=== PATIENT | female | born 1995 ===

== ENCOUNTER 2021-09-25 21:40 | Emergency (ER) | payer SELFPAY ==
[2021-09-25] MEDS ORDERED: IBUPROFEN 800 MG TAB PO ONE (22:33)
[2021-09-25 22:59] LABS: Basophils % (Auto) 0.3 % (0.0-1.8); Eosinophils # (Auto) 0.1 K/mm3 (0.0-0.4); Eosinophils % (Auto) 1.3 % (0.0-4.3); Hematocrit 37.3 % (30.3-42.9); Hemoglobin 11.5 gm/dl (10.1-14.3); Lymphocytes % (Auto) 23.2 % (13.4-35.0); Mean Corpuscular HGB Conc 31 % (30-34); Mean Corpuscular Volume 71 fl (79-97); Monocytes # (Auto) 0.5 K/mm3 (0.0-0.8); Platelet Count 228 K/mm3 (140-440); Red Blood Count 5.28 M/mm3 (3.65-5.03); Red Cell Distribution Width 13.8 % (13.2-15.2)
--- NOTE | 2021-09-25 23:13 | Emergency Department Report ---
ED Female HPI - General Chief complaint: Vaginal Bleeding Stated complaint: 8WEEKS PREG BLEEDING Time Seen by Provider: 09/25/21 22:29 Source: patient, family Mode of arrival: Wheelchair Limitations: Language Barrier - History of Present Illness Initial comments: CC: "I took a pill. Baby did not have a heart beat." HPI: This is a 26 yo female who presents with vaginal bleeding and pelvic pain. Yesterday, patient was evaluated at clinic yesterday. Baby did not have a heartbeat. She is 8 weeks , unknown due date. She was given a pill to initiate the miscarriage. She has mild pelvic pain. She has filled 3 pads with bleeding. Family friend provided Maltese interpretation. Complaint: vaginal bleeding, pelvic pain -: Gradual, This afternoon Severity: mild Severity scale (0 -10): 5 Quality: cramping Consistency: constant Improves with: none Worsens with: none Are you Now?: Yes Associated Symptoms: denies other symptoms - Related Data Allergies Allergy/AdvReac Type Severity Reaction Status Date / Time No Known Allergies Allergy Verified 09/25/21 22:07 ED Review of Systems ROS: Stated complaint: 8WEEKS PREG BLEEDING Other details as noted in HPI Comment: All other systems reviewed and negative Constitutional: denies: chills, fever, malaise Respiratory: denies: cough, shortness of breath Cardiovascular: denies: chest pain Gastrointestinal: abdominal pain. denies: nausea, vomiting Musculoskeletal: denies: back pain Skin: denies: rash, lesions ED Past Medical Hx - Past Medical History Previous Medical History?: No - Surgical History Past Surgical History?: No - Family History Family history: other (noncontributory to this presentation) - Social History Smoking Status: Never Smoker Substance Use Type: None ED Physical Exam - General Limitations: Language Barrier General appearance: alert, in no apparent distress - Head Head exam: Present: atraumatic, normocephalic - Eye Eye exam: Present: normal appearance - ENT ENT exam: Present: mucous membranes moist - Neck Neck exam: Present: normal inspection, full ROM - Respiratory Respiratory exam: Present: normal lung sounds bilaterally. Absent: respiratory distress, wheezes, rales, rhonchi - Cardiovascular Cardiovascular Exam: Present: regular rate, normal rhythm, normal heart sounds. Absent: systolic murmur, diastolic murmur, rubs, gallop - GI/Abdominal GI/Abdominal exam: Present: soft, normal bowel sounds. Absent: distended, tenderness, guarding, rebound - Extremities Exam Extremities exam: Present: normal inspection - Neurological Exam Neurological exam: Present: alert, oriented X3 - Psychiatric Psychiatric exam: Present: normal affect, normal mood - Skin Skin exam: Present: warm, dry, intact, normal color. Absent: rash ED Course Vital Signs 09/25/21 09/25/21 09/25/21 21:53 22:01 22:27 Temperature 99.4 F Pulse Rate 111 H Respiratory 16 Rate Blood Pressure Blood Pressure 165/88 [Right] O2 Sat by Pulse 99 98 97 Oximetry 09/25/21 09/25/21 09/25/21 22:29 22:30 22:45 Temperature 98.1 F Pulse Rate 96 H Respiratory 16 Rate Blood Pressure 153/86 Blood Pressure 153/86 [Right] O2 Sat by Pulse 98 99 98 Oximetry 09/25/21 09/25/21 09/25/21 23:00 23:15 23:31 Temperature Pulse Rate Respiratory Rate Blood Pressure 154/90 169/97 151/88 Blood Pressure [Right] O2 Sat by Pulse 95 99 98 Oximetry 09/25/21 09/25/21 09/26/21 23:35 23:45 00:01 Temperature Pulse Rate Respiratory Rate Blood Pressure 151/88 151/88 150/88 Blood Pressure [Right] O2 Sat by Pulse 98 98 98 Oximetry 09/26/21 09/26/21 09/26/21 00:15 00:31 00:45 Temperature Pulse Rate Respiratory Rate Blood Pressure 150/88 202/115 202/115 Blood Pressure [Right] O2 Sat by Pulse 99 99 99 Oximetry 09/26/21 09/26/21 09/26/21 01:01 01:15 01:31 Temperature Pulse Rate Respiratory Rate Blood Pressure 110/53 110/53 106/48 Blood Pressure [Right] O2 Sat by Pulse 98 98 97 Oximetry 09/26/21 09/26/21 09/26/21 01:45 02:01 02:15 Temperature Pulse Rate Respiratory Rate Blood Pressure 106/48 126/62 126/62 Blood Pressure [Right] O2 Sat by Pulse 99 99 99 Oximetry 09/26/21 09/26/21 09/26/21 02:31 02:45 03:01 Temperature Pulse Rate Respiratory Rate Blood Pressure 99/80 116/59 118/69 Blood Pressure [Right] O2 Sat by Pulse 98 100 100 Oximetry 09/26/21 09/26/21 09/26/21 03:15 03:31 03:45 Temperature Pulse Rate Respiratory Rate Blood Pressure 118/69 132/62 132/62 Blood Pressure [Right] O2 Sat by Pulse 100 98 97 Oximetry 09/26/21 04:01 Temperature Pulse Rate Respiratory Rate Blood Pressure 110/42 Blood Pressure [Right] O2 Sat by Pulse 99 Oximetry - Reevaluation(s) Reevaluation #1: 09/26/21 02:40 I reassessed patient. After ultrasound, she had large passage of tissue and blood clots. She stated that "all of it came out." She has moderate pain. Ordered normal saline and repeat H&H. Patient had pallor. Minimal bleeding at this time. ED Medical Decision Making - Lab Data Result diagrams: 09/26/21 03:03 Laboratory Results - last 24 hr 09/25/21 09/25/21 09/25/21 22:23 22:23 22:23 WBC 8.6 RBC 5.28 H Hgb 11.5 Hct 37.3 MCV 71 L MCH 22 L MCHC 31 RDW 13.8 Plt Count 228 Lymph % (Auto) 23.2 Eagle % (Auto) 6.0 Eos % (Auto) 1.3 Baso % (Auto) 0.3 Lymph # (Auto) 2.0 [place] # (Auto) 0.5 Eos # (Auto) 0.1 Baso # (Auto) 0.0 Seg Neutrophils % 69.2 Seg Neutrophils # 5.9 HCG, Quant 1555 H Blood Type O POSITIVE - Radiology Data Radiology results: report reviewed 09/26/21 03:14 Patient Name: ELIZABETH LAY Gender: Female Date of : 1995 Home Phone: Referring Provider: RYLEY SALGADO Organization: [facility] Accession Number: [id number] Requested Date: September 25, 2021 22:33 Report Status: Final Requested Procedure: 1 Procedure Description: US OB transvaginal Modality: US Findings Reporting MD: Hadley Miller Dictation Time: September 25, 2021 23:57 Architectural Coating Finisher: Not available Demand Planner Date: ULTRASOUND OBSTETRIC INDICATION / CLINICAL INFORMATION: pelvic pain vaginal bleeding miscarriage. Clinical Gestational Age (GA) in weeks, days: 11, 3 TECHNIQUE: Transabdominal and Transvaginal. COMPARISON: None. FINDINGS: GESTATIONAL SAC: Single low-lying intrauterine gestational sac measuring up to 3.4 cm greatest dimension. YOLK SAC: Not clearly identified. EMBRYO/FETUS: Single pole is identified. - [place]-Rump Length = not measured cm = weeks, days -Gestational sac size 3.36 cm x 1.43 cm, 7 weeks 3 days.. - Heart Rate, beats per minute (if present) = 0 ADNEXA: Ovaries are not identified. FREE FLUID: Moderate ADDITIONAL FINDINGS: None. IMPRESSION: 1. Single low lying intrauterine gestational sac with estimated gestational age of 7 weeks 3 days. Single pole, no heart activity. Findings are considered compatible with demise and inevitable . Signer Name: Hadley Miller II, MD Signed: 09/25/2021 11:57 PM Workstation Name: [id number] 09/26/21 03:14 - Medical Decision Making Patient presents with incomplete miscarriage with known demise, confirmed with ultrasound in emergency department. emergency department with passage of tissue products and blood clots. Vaginal bleeding minimal after 5 hours of observation. She received IV ketorolac, ibuprofen, IV fluid therapy. Rh positive. Bleeding had ceased for the past hour. She is normotensive. Hemoglobin 9.1 which is acceptable for discharge.. She is discharged home. Critical care attestation.: If time is entered above; I have spent that time in minutes in the direct care of this critically ill patient, excluding procedure time. ED Disposition Clinical Impression: demise, Incomplete miscarriage Disposition: HOME / SELF CARE / HOMELESS Is pt being admited?: No Does the pt Need Aspirin: No Condition: Stable Instructions: Miscarriage, [id number] Referrals: RANDELL VICTORIA MD [Staff Physician] - 3-5 Days Print Language: HEBREW
--- NOTE | 2021-09-26 01:01 | Ultrasound Report ---
ULTRASOUND OBSTETRIC INDICATION / CLINICAL INFORMATION: pelvic pain vaginal bleeding miscarriage. Clinical Gestational Age (GA) in weeks, days: 11, 3 TECHNIQUE: Transabdominal and Transvaginal. COMPARISON: None. FINDINGS: GESTATIONAL SAC: Single low-lying intrauterine gestational sac measuring up to 3.4 cm greatest dimens ion. YOLK SAC: Not clearly identified. EMBRYO/FETUS: Single pole is identified. - [place]-Rump Length = not measured cm = weeks, days -Gestational sac size 3.36 cm x 1.43 cm, 7 weeks 3 days.. - Heart Rate, beats per minute (if present) = 0 ADNEXA: Ovaries are not identified. FREE FLUID: Moderate ADDITIONAL FINDINGS: None. IMPRESSION: 1. Single low lying intrauterine gestational sac with estimated gestational age of 7 weeks 3 days. Si ngle pole, no heart activity. Findings are considered compatible with demise and inevitab le . Signer Name: Hadley Miller II, MD Signed: 09/26/2021 12:57 AM Workstation Name: [id number]
--- NOTE | 2021-09-26 01:01 | Ultrasound Report ---
ULTRASOUND OBSTETRIC INDICATION / CLINICAL INFORMATION: pelvic pain vaginal bleeding miscarriage. Clinical Gestational Age (GA) in weeks, days: 11, 3 TECHNIQUE: Transabdominal and Transvaginal. COMPARISON: None. FINDINGS: GESTATIONAL SAC: Single low-lying intrauterine gestational sac measuring up to 3.4 cm greatest dimens ion. YOLK SAC: Not clearly identified. EMBRYO/FETUS: Single pole is identified. - [place]-Rump Length = not measured cm = weeks, days -Gestational sac size 3.36 cm x 1.43 cm, 7 weeks 3 days.. - Heart Rate, beats per minute (if present) = 0 ADNEXA: Ovaries are not identified. FREE FLUID: Moderate ADDITIONAL FINDINGS: None. IMPRESSION: 1. Single low lying intrauterine gestational sac with estimated gestational age of 7 weeks 3 days. Si ngle pole, no heart activity. Findings are considered compatible with demise and inevitab le . Signer Name: Hadley Miller II, MD Signed: 09/26/2021 12:57 AM Workstation Name: [id number]
[2021-09-26] MEDS ORDERED: SODIUM CHLORIDE 0.9% 1000 ML 1,000 ML IV ONE (02:38)
[2021-09-26] MEDS ORDERED: KETOROLAC 30 MG/1 ML INJ IV ONE (02:38)
[2021-09-26 03:26] LABS: Hematocrit 28.6 % (30.3-42.9); Hemoglobin 9.1 gm/dl (10.1-14.3)
[2021-09-26 04:41] VITALS: BP 135/72
== END 2021-09-26 04:58 | disposition home or self-care (01) ==
LOC: ED 21:40
DX: O36.4XX1 Maternal care for intrauterine death, fetus 1 (principal); O03.4 Incomplete spontaneous abortion without complication; Z3A.11 11 weeks gestation of pregnancy; Z79.899 Other long term (current) drug therapy
CPT/HCPCS: 36415; 76801; 76817; 84702; 85014; 85018; 85025; 86900; 86901; 96361; 96374; 99284; J1885; J7030; 76802; Q0162

== ENCOUNTER 2021-09-26 22:48 | Emergency (ER) | payer SELFPAY ==
[2021-09-27] MEDS ORDERED: SODIUM CHLORIDE 0.9% 1000 ML 1,000 ML IV ONE (00:59)
[2021-09-27] MEDS ORDERED: MORPHINE 4 MG/1 ML INJ IV ONE (00:59)
[2021-09-27] MEDS ORDERED: ONDANSETRON 4 MG/2 ML INJ IV ONE (00:59)
[2021-09-27 01:29] LABS: Basophils % (Auto) 0.1 % (0.0-1.8); Eosinophils % (Auto) 0.4 % (0.0-4.3); Hematocrit 25.4 % (30.3-42.9); Lymphocytes # (Auto) 1.4 K/mm3 (1.2-5.4); Lymphocytes % (Auto) 13.6 % (13.4-35.0); Mean Corpuscular HGB Conc 32 % (30-34); Mean Corpuscular Volume 71 fl (79-97); Monocytes # (Auto) 0.4 K/mm3 (0.0-0.8); Monocytes % (Auto) 3.8 % (0.0-7.3); Platelet Count 220 K/mm3 (140-440); Red Blood Count 3.59 M/mm3 (3.65-5.03); Red Cell Distribution Width 13.7 % (13.2-15.2)
[2021-09-27 01:46] LABS: Alanine Aminotransferase 18 units/L (7-56); Albumin 3.6 g/dL (3.9-5); Blood Urea Nitrogen 11 mg/dL (7-17); Calcium 8.1 mg/dL (8.4-10.2); Hemolysis Index 21
[2021-09-27 01:47] LABS: BUN/Creatinine Ratio 22
--- NOTE | 2021-09-27 04:04 | Emergency Department Report ---
ED Female HPI - General Stated complaint: MISCARRIAGE - History of Present Illness Initial comments: Patient is a 26-year-old female with a history of morbid obesity and who is A1 is approximately 7 weeks gestation with a recently diagnosed inevitable demise presents to the ED with complaint of worsening suprapubic pain with heavy vaginal bleeding for the last 2 days, worse in the last 8 hours. Patient states that she has been taking ibuprofen as needed for pain with no relief. Patient also states that she is currently taking methotrexate that was previously prescribed by her [employer] physician. Patient denies nausea and vomiting, dizziness, syncope, chest pain or shortness of breath, dysuria, urinary frequency and urgency, low back pain, fever, chills, cough, sore throat or diarrhea. MD Complaint: vaginal bleeding, pelvic pain -: Sudden, days(s) (2) Location: suprapubic, other (vaginal bleeding) Radiation: suprapubic Severity: severe Severity scale (0 -10): 8 Quality: cramping, sharp Consistency: constant Improves with: none Worsens with: movement Are you Now?: Yes (miscarriage in process) Associated Symptoms: denies other symptoms, vaginal bleeding, abdominal pain (Suprapubic). denies: vaginal discharge, nausea/vomiting, fever/chills, headaches, hematuria, rash, shortness of breath, syncope, weakness, other - Related Data Sexually active: Yes : 2 Para: 1 A: 1 Previous Rx's Medication Instructions Recorded Last Taken Type Ondansetron [Zofran Odt] 4 mg PO Q8HR PRN #20 tab.rapdis 09/27/21 Unknown Rx oxyCODONE /ACETAMINOPHEN [Percocet 1 tab PO Q6HR PRN #12 tablet 09/27/21 Unknown Rx 5/325] Allergies Allergy/AdvReac Type Severity Reaction Status Date / Time No Known Allergies Allergy Verified 09/25/21 22:07 ED Review of Systems ROS: Stated complaint: MISCARRIAGE Other details as noted in HPI Constitutional: denies: chills, fever Eyes: denies: eye pain, eye discharge, vision change ENT: denies: ear pain, throat pain Respiratory: denies: cough, shortness of breath, wheezing Cardiovascular: denies: chest pain, palpitations Endocrine: no symptoms reported Gastrointestinal: abdominal pain (Suprapubic pain). denies: nausea, vomiting, diarrhea, constipation, hematemesis, hematochezia Genitourinary: abnormal menses (Heavy vaginal bleeding). denies: urgency, dysuria, frequency, hematuria, discharge, dyspareunia Musculoskeletal: denies: back pain, joint swelling, arthralgia Skin: denies: rash, lesions Neurological: denies: headache, weakness, paresthesias Psychiatric: denies: anxiety, depression Hematological/Lymphatic: denies: easy bleeding, easy bruising ED Past Medical Hx - Social History Smoking Status: Never Smoker Substance Use Type: None - Medications Home Medications: Home Medications Medication Instructions Recorded Confirmed Last Taken Type Ondansetron [Zofran Odt] 4 mg PO Q8HR PRN #20 tab.rapdis 09/27/21 Unknown Rx oxyCODONE /ACETAMINOPHEN [Percocet 1 tab PO Q6HR PRN #12 tablet 09/27/21 Unknown Rx 5/325] ED Physical Exam - General General appearance: alert, in no apparent distress - Head Head exam: Present: atraumatic, normocephalic, normal inspection - Eye Eye exam: Present: normal appearance, PERRL, EOMI Pupils: Present: normal accommodation - ENT ENT exam: Present: normal exam, normal orophraynx, mucous membranes moist, TM's normal bilaterally, normal external ear exam - Neck Neck exam: Present: normal inspection, full ROM. Absent: tenderness - Respiratory Respiratory exam: Present: normal lung sounds bilaterally. Absent: respiratory distress, wheezes, rales, rhonchi, chest wall tenderness, accessory muscle use, decreased breath sounds, prolonged expiratory - Cardiovascular Cardiovascular Exam: Present: normal rhythm, tachycardia, normal heart sounds. Absent: systolic murmur, diastolic murmur, rubs, gallop - GI/Abdominal GI/Abdominal exam: Present: soft, tenderness (Palpable suprapubic tenderness), normal bowel sounds. Absent: guarding, rebound, hyperactive bowel sounds, hypoactive bowel sounds, mass, bruit - Bi-manual exam: Present: other (Pelvic exam deferred at this time) - Extremities Exam Extremities exam: Present: normal inspection, full ROM, normal capillary refill. Absent: tenderness, pedal edema, joint swelling - Back Exam Back exam: Present: normal inspection, full ROM. Absent: tenderness, CVA tenderness (R), CVA tenderness (L), muscle spasm, paraspinal tenderness, vertebral tenderness - Neurological Exam Neurological exam: Present: alert, oriented X3, CN II-XII intact, normal gait, reflexes normal - Psychiatric Psychiatric exam: Present: normal affect, normal mood - Skin Skin exam: Present: warm, dry, intact, normal color. Absent: rash ED Course Vital Signs 09/27/21 01:18 Respiratory 16 Rate ED Medical Decision Making - Lab Data Result diagrams: 09/27/21 01:08 09/27/21 01:08 - Medical Decision Making This is a 26-year-old female with a history of morbid obesity and who is A1 is approximately 7 weeks gestation with a recently diagnosed inevitab le demise presents to the ED with complaint of worsening suprapubic pain with heavy vaginal bleeding for the last 2 days, worse in the last 8 hours. Patient states that she has been taking ibuprofen as needed for pain with no relief. Patient stated that she is also currently taking methotrexate that was prescribed by her [employer] physician. In the ED, patient is alert and oriented x3 and is not in any distress. Patient appears to be in pain and is tachycardic and afebrile in triage. Patient was treated for pain in the ED. Lab test results were reviewed and showed hCG quant of 1094 compared to 1555 about 48 hours ago. Other lab test results were nonactionable. On reevaluation, eloisa jackson's pain is well controlled medication. Patient will discharge home on pain medications and advised to continue taking the previously prescribed medications and to observe complete pelvic rest. Patient was advised to follow-up with [employer] physician in 3 to 5 days for reevaluation or return to the ED immediately if symptoms get worse. - Differential Diagnosis demise; inevitable ; UTI; ovarian cyst; subchorionic bleed Critical care attestation.: If time is entered above; I have spent that time in minutes in the direct care of this critically ill patient, excluding procedure time. ED Disposition Clinical Impression: Vaginal bleeding affecting early , demise due to miscarriage, Abdominal pain during in first trimester, Incomplete miscarriage Disposition: HOME / SELF CARE / HOMELESS Is pt being admited?: No Does the pt Need Aspirin: No Condition: Stable Instructions: Vaginal Bleeding During , First Trimester, Miscarriage, [id number], Abdominal Pain During , [id number], Vaginal Bleeding During , First Trimester, [id number], Vaginal Delivery, Loss, Care After Additional Instructions: Todos los resultados de las pruebas de laboratorio fueron revisados ??y no son procesables. Por lo tanto, tome los medicamentos con alimentos, karoline muchos lquidos, mantenga un descanso plvico completo sin actividades fsicas o extenuantes o actividades sexuales y cheryle un seguimiento con osorio mdico obstetra/gineclogo en 3 a 5 harry para lucero reevaluacin. Regrese al servicio de urgencias inmediatamente si los sntomas empeoran. Prescriptions: oxyCODONE /ACETAMINOPHEN [Percocet 5/325] 1 tab PO Q6HR PRN #12 tablet PRN Reason: Pain Ondansetron [Zofran Odt] 4 mg PO Q8HR PRN #20 tab.rapdis PRN Reason: Nausea Referrals: DERICK WESLEY MD [Staff Physician] - 3-5 Days Time of Disposition: 04:11 Print Language: DANISH
[2021-09-27 04:06] VITALS: BP 155/96
== END 2021-09-27 04:45 | disposition home or self-care (01) ==
LOC: ED 22:48
DX: O03.4 Incomplete spontaneous abortion without complication (principal); O36.4XX1 Maternal care for intrauterine death, fetus 1; Z79.899 Other long term (current) drug therapy; Z3A.01 Less than 8 weeks gestation of pregnancy
CPT/HCPCS: 36415; 80053; 84702; 85025; 96361; 96374; 96375; 99283; J2270; J2405; J7030; Q0162

== ENCOUNTER 2021-10-06 16:10 | Emergency (ER) | payer SELFPAY ==
[2021-10-06] MEDS ORDERED: SODIUM CHLORIDE 0.9% 1000 ML 1,000 ML IV ONE ×2 (16:54)
[2021-10-06 16:55] LABS: Basophils % (Auto) 0.2 % (0.0-1.8); Eosinophils # (Auto) 0.1 K/mm3 (0.0-0.4); Eosinophils % (Auto) 0.6 % (0.0-4.3); Hemoglobin 6.3 gm/dl (10.1-14.3); Lymphocytes # (Auto) 2.2 K/mm3 (1.2-5.4); Lymphocytes % (Auto) 15.1 % (13.4-35.0); Mean Corpuscular HGB Conc 32 % (30-34); Mean Corpuscular Volume 70 fl (79-97); Monocytes # (Auto) 0.6 K/mm3 (0.0-0.8); Monocytes % (Auto) 4.2 % (0.0-7.3); Platelet Count 410 K/mm3 (140-440); Red Blood Count 2.84 M/mm3 (3.65-5.03); Red Cell Distribution Width 14.6 % (13.2-15.2)
[2021-10-06] MEDS ORDERED: ONDANSETRON 4 MG/2 ML INJ IV ONE (16:57)
[2021-10-06] MEDS ORDERED: HYDROmorphone 1 MG/1 ML INJ IV ONE (16:57)
[2021-10-06] MEDS ORDERED: KETOROLAC 30 MG/1 ML INJ IV ONE (16:57)
[2021-10-06 16:58] LABS: Hematocrit 19.9 % (30.3-42.9)
[2021-10-06] MEDS ORDERED: SODIUM CHLORIDE 0.9% 500 ML 500 ML IV ONE (16:59)
--- NOTE | 2021-10-06 17:51 | Emergency Department Report ---
ED HPI - General Chief complaint: Vaginal Bleeding Stated complaint: POSS MISCARRIAGE/HYPOTENSIVE Time Seen by Provider: 10/06/21 16:39 Source: EMS, old records reviewed Mode of arrival: Stretcher Limitations: Language Barrier (director business development used) - History of Present Illness Initial comments: 26-year-old female presents to the hospital with worsening bleeding, generalized weakness, and a syncopal episode during current miscarriage. Patient was diagnosed with demise at outpatient clinic on September 24 and was treated with medicine to pass the baby. Ultrasound here on September 25 confirms 7-week 3-day IUP with heart heartbeat. Patient has had repeated ER visits for heavy vaginal bleeding and abdominal pain as well as following up in clinic with downtrending hCGs. Last follow-up with the clinic was yesterday. Today patient states she had heavy vaginal bleeding, increased suprapubic and lower back cramping pain, and had a syncopal episode so came to the ED for evaluation. She is currently taking Zofran and Percocet as needed - Related Data Previous Rx's Medication Instructions Recorded Last Taken Type Ondansetron [Zofran Odt] 4 mg PO Q8HR PRN #20 tab.rapdis 09/27/21 Unknown Rx oxyCODONE /ACETAMINOPHEN [Percocet 1 tab PO Q6HR PRN #12 tablet 09/27/21 Unknown Rx 5/325] Ferrous Sulfate [Iron 325 MG] 325 mg PO DAILY #20 tab 10/06/21 Unknown Rx Methylergonovine [Methergine] 0.2 mg PO Q8HR #9 tablet 10/06/21 Unknown Rx Allergies Allergy/AdvReac Type Severity Reaction Status Date / Time No Known Allergies Allergy Verified 10/06/21 16:20 ED Review of Systems ROS: Stated complaint: POSS MISCARRIAGE/HYPOTENSIVE Other details as noted in HPI Comment: All other systems reviewed and negative ED Past Medical Hx - Social History Smoking Status: Unknown if ever smoked - Medications Home Medications: Home Medications Medication Instructions Recorded Confirmed Last Taken Type Ondansetron [Zofran Odt] 4 mg PO Q8HR PRN #20 tab.rapdis 09/27/21 Unknown Rx oxyCODONE /ACETAMINOPHEN [Percocet 1 tab PO Q6HR PRN #12 tablet 09/27/21 Unkno wn Rx 5/325] Ferrous Sulfate [Iron 325 MG] 325 mg PO DAILY #20 tab 10/06/21 Unknown Rx Methylergonovine [Methergine] 0.2 mg PO Q8HR #9 tablet 10/06/21 Unknown Rx ED Physical Exam - General Limitations: No Limitations - Other Other exam information: General: No acute distress Head: Atraumatic Eyes: normal appearance ENT: Moist mucous membranes Neck: Normal appearance, no midline tenderness Chest: Clear to auscultation bilaterally CV: Regular rate and rhythm Abdomen: Soft, normal bowel sounds, suprapubic tenderness, nondistended, no rebound or guarding : Vaginal bleeding with passage of blood clots Back: Normal inspection Extremity: Normal inspection, full range of motion Neuro: Alert O x 3, no facial asymmetry, speech clear, no gross motor sensory deficit Psych: Appropriate behavior Skin: Pale appearing ED Course Vital Signs 10/06/21 10/06/21 10/06/21 16:19 16:41 16:45 Temperature 98 F Pulse Rate 106 H Respiratory 18 Rate Blood Pressure 127/84 111/67 Blood Pressure 111/91 [Left] O2 Sat by Pulse 100 Oximetry 10/06/21 10/06/21 10/06/21 17:06 17:15 17:30 Temperature Pulse Rate 90 Respiratory 19 Rate Blood Pressure 114/38 100/62 117/48 Blood Pressure [Left] O2 Sat by Pulse 99 Oximetry 10/06/21 10/06/21 10/06/21 17:40 17:51 18:00 Temperature Pulse Rate 92 H 92 H 90 Respiratory 15 36 H 36 H Rate Blood Pressure 120/47 119/52 122/43 Blood Pressure [Left] O2 Sat by Pulse 100 100 100 Oximetry 10/06/21 10/06/21 10/06/21 18:10 18:20 18:30 Temperature 98.3 F Pulse Rate 93 H 88 91 H Respiratory 34 H 29 H 23 Rate Blood Pressure 111/62 140/56 109/40 Blood Pressure [Left] O2 Sat by Pulse 100 100 100 Oximetry 10/06/21 10/06/21 10/06/21 18:39 18:40 18:41 Temperature 98.3 F Pulse Rate 90 86 85 Respiratory 24 23 17 Rate Blood Pressure 110/51 110/51 110/51 Blood Pressure [Left] O2 Sat by Pulse 99 100 100 Oximetry 10/06/21 10/06/21 10/06/21 18:43 18:44 18:45 Temperature 98.3 F Pulse Rate 97 H 84 84 Respiratory 21 22 28 H Rate Blood Pressure 110/51 114/41 114/41 Blood Pressure 120/43 [Left] O2 Sat by Pulse 100 100 100 Oximetry 10/06/21 10/06/21 10/06/21 18:47 18:49 18:50 Temperature Pulse Rate 79 84 81 Respiratory 27 H 28 H 26 H Rate Blood Pressure 114/41 114/41 120/43 Blood Pressure [Left] O2 Sat by Pulse 100 100 100 Oximetry 10/06/21 10/06/21 10/06/21 18:51 18:53 18:55 Temperature Pulse Rate 83 82 85 Respiratory 18 23 19 Rate Blood Pressure 120/43 120/43 120/39 Blood Pressure [Left] O2 Sat by Pulse 100 100 100 Oximetry 10/06/21 10/06/21 10/06/21 18:57 18:59 19:01 Temperature Pulse Rate 83 81 83 Respiratory 24 26 H 24 Rate Blood Pressure 120/39 120/39 120/39 Blood Pressure [Left] O2 Sat by Pulse 100 100 100 Oximetry 10/06/21 10/06/21 10/06/21 19:03 19:05 19:07 Temperature Pulse Rate 85 79 91 H Respiratory 28 H 22 13 Rate Blood Pressure 120/39 120/39 120/39 Blood Pressure [Left] O2 Sat by Pulse 100 100 100 Oximetry 10/06/21 10/06/21 10/06/21 19:09 19:10 19:11 Temperature Pulse Rate 87 88 89 Respiratory 17 20 13 Rate Blood Pressure 120/39 117/36 117/36 Blood Pressure [Left] O2 Sat by Pulse 99 100 100 Oximetry 10/06/21 10/06/21 10/06/21 19:13 19:15 19:25 Temperature Pulse Rate 90 85 84 Respiratory 21 12 28 H Rate Blood Pressure 117/36 117/36 110/42 Blood Pressure [Left] O2 Sat by Pulse 98 98 100 Oximetry 10/06/21 10/06/21 10/06/21 19:27 19:29 19:31 Temperature Pulse Rate 86 86 85 Respiratory 26 H 25 H 24 Rate Blood Pressure 110/42 110/42 110/42 Blood Pressure [Left] O2 Sat by Pulse 100 100 100 Oximetry 10/06/21 10/06/21 10/06/21 19:33 19:35 19:37 Temperature Pulse Rate 83 91 H 89 Respiratory 25 H 25 H 13 Rate Blood Pressure 110/42 110/42 110/42 Blood Pressure [Left] O2 Sat by Pulse 100 100 100 Oximetry 10/06/21 10/06/21 10/06/21 19:39 19:40 19:41 Temperature Pulse Rate 86 86 88 Respiratory 20 28 H 27 H Rate Blood Pressure 113/42 113/42 113/42 Blood Pressure [Left] O2 Sat by Pulse 100 100 100 Oximetry 10/06/21 10/06/21 10/06/21 19:43 19:45 19:47 Temperature Pulse Rate 94 H 95 H 94 H Respiratory 24 21 19 Rate Blood Pressure 113/42 113/42 113/42 Blood Pressure [Left] O2 Sat by Pulse 100 100 100 Oximetry 10/06/21 10/06/21 10/06/21 19:49 19:51 19:53 Temperature Pulse Rate 94 H 89 96 H Respiratory 18 18 34 H Rate Blood Pressure 113/42 113/42 113/42 Blood Pressure [Left] O2 Sat by Pulse 100 100 100 Oximetry 10/06/21 10/06/21 10/06/21 19:55 19:57 19:59 Temperature Pulse Rate 93 H 103 H 94 H Respiratory 26 H 23 12 Rate Blood Pressure 132/59 132/59 132/59 Blood Pressure [Left] O2 Sat by Pulse 100 100 100 Oximetry 10/06/21 10/06/21 10/06/21 20:01 20:03 20:05 Temperature Pulse Rate 89 92 H 91 H Respiratory 12 14 11 L Rate Blood Pressure 132/59 132/59 132/59 Blood Pressure [Left] O2 Sat by Pulse 100 100 100 Oximetry 10/06/21 10/06/21 10/06/21 20:07 20:09 20:10 Temperature Pulse Rate 92 H 93 H 95 H Respiratory 18 19 20 Rate Blood Pressure 132/59 132/59 103/58 Blood Pressure [Left] O2 Sat by Pulse 100 100 100 Oximetry 10/06/21 10/06/21 10/06/21 20:11 20:13 20:15 Temperature Pulse Rate 91 H 93 H 94 H Respiratory 13 13 16 Rate Blood Pressure 103/58 103/58 103/58 Blood Pressure [Left] O2 Sat by Pulse 100 100 100 Oximetry 10/06/21 10/06/21 10/06/21 20:17 20:19 20:21 Temperature Pulse Rate 91 H 90 97 H Respiratory 17 25 H 30 H Rate Blood Pressure 103/58 103/58 103/58 Blood Pressure [Left] O2 Sat by Pulse 100 100 100 Oximetry 10/06/21 10/06/21 10/06/21 20:23 20:25 20:27 Temperature Pulse Rate 92 H 95 H 90 Respiratory 29 H 16 19 Rate Blood Pressure 103/58 103/52 103/52 Blood Pressure [Left] O2 Sat by Pulse 100 100 100 Oximetry 10/06/21 10/06/21 10/06/21 20:29 20:31 20:33 Temperature Pulse Rate 91 H 103 H 94 H Respiratory 17 22 16 Rate Blood Pressure 103/52 103/52 103/52 Blood Pressure [Left] O2 Sat by Pulse 100 100 100 Oximetry 10/06/21 10/06/21 10/06/21 20:35 20:37 20:39 Temperature Pulse Rate 89 92 H 95 H Respiratory 22 14 18 Rate Blood Pressure 103/52 103/52 103/52 Blood Pressure [Left] O2 Sat by Pulse 100 100 100 Oximetry 10/06/21 10/06/21 10/06/21 20:41 20:43 20:45 Temperature Pulse Rate 94 H 87 92 H Respiratory 21 19 20 Rate Blood Pressure 129/53 129/53 129/53 Blood Pressure [Left] O2 Sat by Pulse 99 100 100 Oximetry 10/06/21 10/06/21 10/06/21 20:47 20:49 20:51 Temperature Pulse Rate 97 H 97 H 101 H Respiratory 22 14 16 Rate Blood Pressure 129/53 129/53 129/53 Blood Pressure [Left] O2 Sat by Pulse 92 97 100 Oximetry 10/06/21 10/06/21 10/06/21 20:53 20:55 20:57 Temperature Pulse Rate 98 H 95 H 91 H Respiratory 13 20 20 Rate Blood Pressure 129/53 145/58 145/58 Blood Pressure [Left] O2 Sat by Pulse 100 100 100 Oximetry 10/06/21 20:59 Temperature Pulse Rate 94 H Respiratory 23 Rate Blood Pressure 145/58 Blood Pressure [Left] O2 Sat by Pulse 100 Oximetry - Consultations Consultation #1: 10/06/21 19:57 Case discussed with on-call [employer] doctor Dr. Chavez who recommends to provide Methergine 0.2 mg IM in the ED then sent home with 0.2 mg p.o. 3 times daily x3 days in addition to blood transfusion prior to discharge ED Medical Decision Making - Lab Data Result diagrams: 10/06/21 16:41 Lab Results 10/06/21 10/06/21 10/06/21 Range/Units 16:41 16:41 16:41 WBC 14.3 H (4.5-11.0) K/mm3 RBC 2.84 L (3.65-5.03) M/mm3 Hgb 6.3 L (10.1-14.3) gm/dl Hct 19.9 L* (30.3-42.9) % MCV 70 L (79-97) fl MCH 22 L (28-32) pg MCHC 32 (30-34) % RDW 14.6 (13.2-15.2) % Plt Count 410 (140-440) K/mm3 Lymph % (Auto) 15.1 (13.4-35.0) % Hunt % (Auto) 4.2 (0.0-7.3) % Eos % (Auto) 0.6 (0.0-4.3) % Baso % (Auto) 0.2 (0.0-1.8) % Lymph # (Auto) 2.2 (1.2-5.4) K/mm3 Hunt # (Auto) 0.6 (0.0-0.8) K/mm3 Eos # (Auto) 0.1 (0.0-0.4) K/mm3 Baso # (Auto) 0.0 (0.0-0.1) K/mm3 Seg Neutrophils % 79.9 H (40.0-70.0) % Seg Neutrophils # 11.5 H (1.8-7.7) K/mm3 HCG, Quant 176.2 H (0-4) mIU/mL Blood Type O POSITIVE Antibody Screen Negative Crossmatch See Detail - EKG Data -: EKG Interpreted by Nd EKG shows normal: sinus rhythm, ST-T waves (No STEMI) Rate: normal - Radiology Data Radiology results: report reviewed ULTRASOUND OBSTETRIC INDICATION / CLINICAL INFORMATION: miscariage, heavy vag bleeding. Clinical Gestational Age (GA): 12 weeks 6 days TECHNIQUE: Transabdominal. Transvaginal COMPARISON: Prior ultrasound 09/26/2021 FINDINGS: UTERUS: Uterus measures 12.0 x 4.6 x 4.7 cm. The endometrium is markedly thickened measuring approximately 4.0 cm in greatest diameter. This is especially noted within the lower uterine segment. Color Doppler evaluation shows no vascularity present within the thickened endometrial area. No defined gestational sac is present within the uterus. ADNEXA: Neither ovary could be identified. FREE FLUID: None. ADDITIONAL FINDINGS: None. IMPRESSION: 1. Markedly thickened endometrium measuring 4 cm. The appearance is most sugge stive of hemorrhage. There is no vascularity present within the thickened endometrium to suggest re tained products of conception. However, clinical correlation is recommended. - Medical Decision Making 26-year-old female status post syncopal episode associate with heavy vaginal bleeding secondary to miscarriage. Drop in H&H noted. Patient treated with 1 unit of PRBCs and Methergine as per recommendation of Dr. Chavez [employer] physician. After ED treatment patient tolerated ambulation in the ED, has normal vital signs, and reports diminished bleeding and pain. She will be discharged to continue current pain medication and Methergine as per recommended by OB Critical Care Time: No Critical care attestation.: If time is entered above; I have spent that time in minutes in the direct care of this critically ill patient, excluding procedure time. ED Disposition Clinical Impression: Miscarriage, Episode of heavy vaginal bleeding, Symptomatic anemia, Syncope Disposition: 01 HOME / SELF CARE / HOMELESS Is pt being admited?: No Does the pt Need Aspirin: No Condition: Stable Instructions: Syncope (ED), Miscarriage, Syncope, [id number], Blood Transfusion, Adult, Care After, [id number] Additional Instructions: Take the medication as prescribed. Follow-up with your doctor or doctor/clinic provided. Return if symptoms worsen as indicated by your discharge instructions. [place] el medicamento segn lo prescrito. Seguimiento con osorio mdico o mdico/clnica proporcionada. Regrese si los sntomas empeoran segn lo indicado en las instrucciones de blue. Prescriptions: Ferrous Sulfate [Iron 325 MG] 325 mg PO DAILY #20 tab Methylergonovine [Methergine] 0.2 mg PO Q8HR #9 tablet Referrals: PRIMARY CAREMD [Primary Care Provider] - 3-5 Days MARIBEL CHAVEZ MD [Staff Physician] - 3-5 Days Time of Disposition: 22:12 Print Language: LAO
--- NOTE | 2021-10-06 18:48 | Ultrasound Report ---
ULTRASOUND OBSTETRIC INDICATION / CLINICAL INFORMATION: miscariage, heavy vag bleeding. Clinical Gestational Age (GA): 12 weeks 6 days TECHNIQUE: Transabdominal. Transvaginal COMPARISON: Prior ultrasound 09/26/2021 FINDINGS: UTERUS: Uterus measures 12.0 x 4.6 x 4.7 cm. The endometrium is markedly thickened measuring approxim ately 4.0 cm in greatest diameter. This is especially noted within the lower uterine segment. Color D oppler evaluation shows no vascularity present within the thickened endometrial area. No defined gest ational sac is present within the uterus. ADNEXA: Neither ovary could be identified. FREE FLUID: None. ADDITIONAL FINDINGS: None. IMPRESSION: 1. Markedly thickened endometrium measuring 4 cm. The appearance is most suggestive of hemorrhage. Th ere is no vascularity present within the thickened endometrium to suggest retained products of concep tion. However, clinical correlation is recommended. Signer Name: Aspen Katz MD Signed: 10/06/2021 6:44 PM Workstation Name: [id number]
[2021-10-06] MEDS ORDERED: METHYLERGONOVINE MALEATE 0.2 MG/ML VIAL IM ONE (19:56)
[2021-10-06 21:01] VITALS: BP 145/58
--- NOTE | 2021-10-09 10:08 | Electrocardiograph Report ---
[facility] Test Date: 2021-10-06 Test Time: 17:48:25 Pat Name: ELIZABETH LAY Department: Room: Gender: F Sand Blaster: JUAN : 1995 Requested By: CARINE MYLES Order Number: [id number] Reading MD: Oliver Escobedo Measurements Intervals [place] Rate: 91 P: 6 CT: 164 QRS: 54 QRSD: 88 T: 28 QT: 380 QTc: 466 Interpretive Statements Sinus rhythm [id number] No previous ECG available for comparison Electronically Signed On 10-09-2021 10:08:14 EDT by Oliver Escobedo
== END 2021-10-06 22:49 | disposition home or self-care (01) ==
LOC: ED 16:10
DX: O03.9 Complete or unspecified spontaneous abortion without complication (principal); O46.91 Antepartum hemorrhage, unspecified, first trimester; O26.891 Other specified pregnancy related conditions, first trimester; O99.011 Anemia complicating pregnancy, first trimester; R42 Dizziness and giddiness; Z3A.01 Less than 8 weeks gestation of pregnancy
CPT/HCPCS: 36415; 36430; 76801; 76817; 84702; 85025; 86850; 86900; 86901; 86920; 93005; 96361; 96372; 96374; 96375; 99284; J1170; J1885; J2210; J2405; J7040; P9016

== ENCOUNTER 2021-10-15 14:04 | Observation (INO) | payer SELFPAY ==
[2021-10-15] MEDS ORDERED: SODIUM CHLORIDE 0.9% 1000 ML 1,000 ML IV ONE ×2 (15:03→16:46)
[2021-10-15 16:22] LABS: Hemoglobin 6.6 gm/dl (10.1-14.3); Red Blood Count 3.19 M/mm3 (3.65-5.03)
[2021-10-15 16:23] LABS: Basophils % (Auto) 0.3 % (0.0-1.8); Eosinophils # (Auto) 0.1 K/mm3 (0.0-0.4); Eosinophils % (Auto) 0.7 % (0.0-4.3); Hematocrit 22.2 % (30.3-42.9); Lymphocytes # (Auto) 1.2 K/mm3 (1.2-5.4); Lymphocytes % (Auto) 13.5 % (13.4-35.0); Mean Corpuscular HGB Conc 30 % (30-34); Mean Corpuscular Volume 70 fl (79-97); Monocytes # (Auto) 0.4 K/mm3 (0.0-0.8); Monocytes % (Auto) 4.5 % (0.0-7.3); Platelet Count 334 K/mm3 (140-440); Red Cell Distribution Width 18.4 % (13.2-15.2)
[2021-10-15 16:42] LABS: Alanine Aminotransferase 16 units/L (7-56); Albumin 4.1 g/dL (3.9-5); Blood Urea Nitrogen 13 mg/dL (7-17); Calcium 9.2 mg/dL (8.4-10.2); Hemolysis Index 0
[2021-10-15 16:43] LABS: BUN/Creatinine Ratio 22
--- NOTE | 2021-10-15 17:22 | Emergency Department Report ---
ED Female HPI - General Chief complaint: Vaginal Bleeding Stated complaint: VAG BLEEDING/ POSS 12PREG Source: patient Mode of arrival: Ambulatory Limitations: No Limitations - History of Present Illness Initial comments: Patient is a A0 26-year-old female who is approximately 12 weeks gestation 2 weeks ago and has been having heavy vaginal bleeding due to miscar riage for the last 2 weeks. Patient has previously been evaluated in this ED for the same and previous pelvic and transvaginal ultrasound reports have showed no intrauterine or products of conception. Patient presented to the ED complaining of persistent pelvic pain, lightheadedness, and heavy vaginal bleeding with large blood clots, generalized weakness and fatigue for the last 24 hours. Patient states that in the last 8 hours alone she has used up to 4 large feminine pads and that the bleeding is constant and persistent with large bowel blood clots. Patient denies fever, chills, chest pain or shortness of breath, cough, change in vision, nausea and vomiting or diarrhea and dysuria. MD Complaint: vaginal bleeding, pelvic pain -: Sudden, week(s) (2) Location: suprapubic, other (vaginal) Radiation: non-radiating Severity: severe Severity scale (0 -10): 7 Quality: cramping, sharp Consistency: constant Improves with: none Worsens with: none Are you Now?: Yes ([facility]) - Related Data Previous Rx's Medication Instructions Recorded Last Taken Type Ondansetron [Zofran Odt] 4 mg PO Q8HR PRN #20 tab.rapdis 09/27/21 Unknown Rx oxyCODONE /ACETAMINOPHEN [Percocet 1 tab PO Q6HR PRN #12 tablet 09/27/21 Unknown Rx 5/325] Ferrous Sulfate [Iron 325 MG] 325 mg PO DAILY #20 tab 10/06/21 Unknown Rx Methylergonovine [Methergine] 0.2 mg PO Q8HR #9 tablet 10/06/21 Unknown Rx Allergies Allergy/AdvReac Type Severity Reaction Status Date / Time No Known Allergies Allergy Verified 10/06/21 16:20 ED Review of Systems ROS: Stated complaint: VAG BLEEDING/ POSS 12PREG Other details as noted in HPI Constitutional: malaise, weakness. denies: chills, fever Eyes: denies: eye pain, eye discharge, vision change ENT: denies: ear pain, throat pain Respiratory: denies: cough, shortness of breath, wheezing Cardiovascular: denies: chest pain, palpitations Endocrine: no symptoms reported Gastrointestinal: abdominal pain (Pelvic pain). denies: nausea, vomiting, diarrhea Genitourinary: abnormal menses (Heavy vaginal bleeding with large blood clots). denies: urgency, dysuria, discharge Musculoskeletal: denies: back pain, joint swelling, arthralgia Skin: denies: rash, lesions Neurological: other (Lightheadedness). denies: headache, weakness, paresthesias Psychiatric: denies: anxiety, depression Hematological/Lymphatic: denies: easy bleeding, easy bruising ED Past Medical Hx - Social History Smoking Status: Unknown if ever smoked - Medications Home Medications: Home Medications Medication Instructions Recorded Confirmed Last Taken Type Ondansetron [Zofran Odt] 4 mg PO Q8HR PRN #20 tab.rapdis 09/27/21 Unknown Rx oxyCODONE /ACETAMINOPHEN [Percocet 1 tab PO Q6HR PRN #12 tablet 09/27/21 Unknown Rx 5/325] Ferrous Sulfate [Iron 325 MG] 325 mg PO DAILY #20 tab 10/06/21 Unknown Rx Methylergonovine [Methergine] 0.2 mg PO Q8HR #9 tablet 10/06/21 Unknown Rx ED Physical Exam - General Limitations: No Limitations General appearance: alert, in no apparent distress - Head Head exam: Present: atraumatic, normocephalic, normal inspection - Eye Eye exam: Present: normal appearance, PERRL, EOMI Pupils: Present: normal accommodation - ENT ENT exam: Present: normal exam, normal orophraynx, mucous membranes moist, TM's normal bilaterally, normal external ear exam - Neck Neck exam: Present: normal inspection, full ROM. Absent: tenderness - Respiratory Respiratory exam: Present: normal lung sounds bilaterally. Absent: respiratory distress, wheezes, rales, rhonchi, chest wall tenderness, accessory muscle use, decreased breath sounds, other - Cardiovascular Cardiovascular Exam: Present: normal rhythm, tachycardia, normal heart sounds. Absent: systolic murmur, diastolic murmur, rubs, gallop - GI/Abdominal GI/Abdominal exam: Present: soft, tenderness (Palpable diffuse lower abdominal tenderness), normal bowel sounds. Absent: guarding, rebound, hyperactive bowel sounds, hypoactive bowel sounds, organomegaly, mass - External exam: Present: bleeding (Heavy vaginal bleeding grossly with large blood clots; vaginal vault completely closed with a thick large blood clots) Speculum exam: Present: vaginal bleeding Bi-manual exam: Present: other (ED female RN client relationship consultant Ms. Pabon present) - Extremities Exam Extremities exam: Present: normal inspection, full ROM, normal capillary refill - Back Exam Back exam: Present: normal inspection, full ROM. Absent: tenderness, CVA tenderness (R), CVA tenderness (L), muscle spasm, paraspinal tenderness, vertebral tenderness - Neurological Exam Neurological exam: Present: alert, oriented X3, CN II-XII intact, normal gait, reflexes normal - Psychiatric Psychiatric exam: Present: normal affect, normal mood - Skin Skin exam: Present: warm, dry, intact, normal color. Absent: rash ED Course Vital Signs 10/15/21 14:54 Temperature 97.2 F L Pulse Rate 130 H Respiratory 18 Rate Blood Pressure 157/85 [Right] O2 Sat by Pulse 100 Oximetry ED Medical Decision Making - Lab Data Result diagrams: 10/15/21 15:34 10/15/21 15:34 - Radiology Data Radiology results: report reviewed, image reviewed [facility] [address] [place] [address] Ultrasound Report Signed Patient: ELIZABETH LAY MR#: [id number] : 1995 Acct:[id number] Age/Sex: 26 / F ADM Date: 10/15/21 Loc: ED Attending Dr: Ordering Physician: SIMEON BOND Date of Service: 10/15/21 Procedure(s): US transvaginal Accession Number(s): [id number] cc: SIMEON BOND Pelvic Ultrasound HISTORY: vaginal bleeding. Patient reportedly with recent miscarriage TECHNIQUE: Grayscale and color imaging performed. COMPARISON: Pelvic ultrasound from 10/07/2019 to FINDINGS: Uterus measures 9.7 x 4.4 x 4.2 cm with endometrial echocomplex measuring 1.2 cm, previously 4 cm. No focal nodularity demonstrated. The ovaries were obscured by bowel gas. No gross pelvic free fluid. IMPRESSION: Limited exam as outlined above with significant interval decrease in size of the endometrial complex and no gross nodularity to suggest retained products. Signer Name: Keo Villagomez MD Signed: 10/15/2021 6:22 PM Workstation Name: [id number] Transcribed By: JW Dictated By: Keo Villagomez MD Electronically Authenticated By: Keo Villagomez MD Signed Date/Time: 10/15/211821 DD/ 20 TD/TT: Print - Medical Decision Making This is a A0 26-year-old female who is approximately 12 weeks gestation 2 weeks ago and has been having heavy vaginal bleeding due to miscarriage for the last 2 weeks. Patient has previously been evaluated in this ED for the same and previous pelvic and transvaginal ultrasound reports have showed no intrauterine or products of conception. Patient presented to the ED complaining of persistent pelvic pain, lightheadedness, and heavy vaginal bleeding with large blood clots, generalized weakness and fatigue for the last 24 hours. Patient states that in the last 8 hours alone she has used up to 4 large feminine pads and that the bleeding is constant and persistent with large bowel blood clots. In the ED, patient is alert and oriented x3 and is not in any distress but tachycardic, afebrile and appears ashen and dehydrated. Lab test results were reviewed and showed hemoglobin of 6.6 and hematocrit of 22.2, and the hCG quant was 13.04. The pelvic ultrasound showed significant interval decrease in size of the endometrial complex and no gross nodularity to suggest retained products. Patient was given 2 L of normal saline IV bolus x1. Patient case was discussed with the [employer] physician on-call Dr. Chavez who advised that the patient be transfused with 2 units of blood and that the patient be admitted for observation in the mother-baby unit and be admitted under Dr. Larson which I assume care after her shift. She also advised the patient be treated with Methergine 0.2 mg intramuscular injection x1 and will maintain on 0.2 mg dose of Methergine 3 times a day upon admission. Admission orders were then placed for the patient and was transferred to the [employer] floor as instructed by Dr. Chavez. - Differential Diagnosis Miscarriage; anemia; dysfunctional uterine bleeding; UTI; Critical care attestation.: If time is entered above; I have spent that time in minutes in the direct care of this critically ill patient, excluding procedure time. ED Disposition Clinical Impression: Episode of heavy vaginal bleeding, Miscarriage, Intermittent lightheadedness, Anemia due to acute blood loss Disposition: 02 SHORT TERM HOSPITAL Is pt being admited?: Yes Does the pt Need Aspirin: No Condition: Stable Referrals: JERED HERNÁNDEZ MD [Primary Care Provider] - 3-5 Days Time of Disposition: 20:05 Print Language: HUNGARIAN
--- NOTE | 2021-10-15 18:27 | Ultrasound Report ---
Pelvic Ultrasound HISTORY: vaginal bleeding. Patient reportedly with recent miscarriage TECHNIQUE: Grayscale and color imaging performed. COMPARISON: Pelvic ultrasound from 10/07/2019 to FINDINGS: Uterus measures 9.7 x 4.4 x 4.2 cm with endometrial echocomplex measuring 1.2 cm, previousl y 4 cm. No focal nodularity demonstrated. The ovaries were obscured by bowel gas. No gross pelvic ar e fluid. IMPRESSION: Limited exam as outlined above with significant interval decrease in size of the endometr ial complex and no gross nodularity to suggest retained products. Signer Name: Keo Villagomez MD Signed: 10/15/2021 6:22 PM Workstation Name: [id number]
[2021-10-15] MEDS ORDERED: SODIUM CHLORIDE 0.9% 500 ML 500 ML IV ONE ×2 (18:28→22:03)
[2021-10-15] MEDS ORDERED: METHYLERGONOVINE MALEATE 0.2 MG/ML VIAL IM ONE (19:47)
[2021-10-15] MEDS ORDERED: MORPHINE 4 MG/1 ML INJ IV ONE (20:09)
[2021-10-15] MEDS ORDERED: ONDANSETRON 4 MG/2 ML INJ IV ONE (20:09)
[2021-10-15] MEDS ORDERED: D5W/0.9% NACL 1,000 ML IV SCH (21:00)
[2021-10-15] MEDS ORDERED: SODIUM CHLORIDE 0.9% 500 ML 500 ML ONE (21:02)
[2021-10-15] MEDS ORDERED: METHYLERGONOVINE 0.2 MG TABLET PO SCH (22:00)
--- NOTE | 2021-10-15 23:26 | Anesthesia Consultation ---
Anesthesia Consult and Med Hx Date of service: 10/15/21 - Airway Anesthetic Teeth Evaluation: Good ROM Head & Neck: Adequate Mental/Hyoid Distance: Adequate Mallampati Class: Class II Intubation Access Assessment: Probably Good - Pulmonary Exam CTA: Yes - Pre-Operative Health Status ASA Pre-Surgery Classification: ASA2 Proposed Anesthetic Plan: General - Pulmonary Hx Smoking: No Hx Asthma: No Hx Respiratory Symptoms: No - Cardiovascular System Hx Hypertension: No Hx Coronary Artery Disease: No Hx Heart Attack/AMI: No Hx Angina: No - Central Nervous System Hx Neuromuscular Disorder: No Hx Seizures: No Hx Psychiatric Problems: No - Endocrine Hx Renal Disease: No Hx Liver Disease: No Hx Insulin Dependent Diabetes: No Hx Non-Insulin Dependent Diabetes: No Hx Thyroid Disease: No - Hematic Hx Anemia: Yes - Other Systems Hx Alcohol Use: No Hx Substance Use: No Hx Obesity: Yes (BMI 41.7kg) - Additional Comments Anesthesia Medical History Comments: Patient denied previous anesthesia complication
--- NOTE | 2021-10-15 23:27 | Anesthesia Day of Surgery ---
Anesthesia Day of Surgery - Day of Surgery Patient Examined: Yes Patient H&P Reviewed: Yes Patient is NPO: Yes Beta Blockers: No Cardiac Clearance: No Pulmonary Clearance: No Gregory's Test: N/A
[2021-10-15] MEDS ORDERED: propofoL 200 MG/20 ML VIAL IV ONE (23:32)
[2021-10-15] MEDS ORDERED: fentaNYL 100 MCG/2 ML INJ ONE (23:32)
[2021-10-15] MEDS ORDERED: ONDANSETRON 4 MG/2 ML INJ ONE (23:32)
[2021-10-15] MEDS ORDERED: LIDOCAINE MPF (2%) 20 MG/1 ML VIAL 5 ML ONE (23:32)
--- NOTE | 2021-10-15 23:32 | History and Physical Report ---
History of Present Illness Date of examination: 10/15/21 Date of admission: 10/15/2021 Chief complaint: Vaginal bleeding and dizziness History of present illness: 26 y/o at ~12 weeks gestation by dates was diagnosed with a miscarriage a few weeks ago. She was given medication to treat this (presumably misoprostol +/- methergine) by a community provider. Vaginal bleeding persisted thereafter. She sought care in the ED earlier this month and was given a blood transfusion prior to discharge home. Today, vaginal bleeding is heavy with clots and associated dizziness and lightheadedness. Hemoglobin in main E.D. was 6.6 g/dL, and blood transfusion was ordered. B-hCG was 13, and pelvic ultrasound was limited, but not suspicious for retained products of conception. However, clinically (and after reviewing the pelvic ultrasound images myself), I have suspicion for something within the endometrial cavity (e.g. some degree of retained products of conception, endometrial polyp, or tumor) as the cause of this patient's heavy vaginal bleeding. I offered the patient suction dilation and curettage, possible hysteroscopy as treatment. In my opinion, without addressing the source of the vaginal bleeding, she will continue to exhibit symptoms and blood transfusion will be less effective. The R/A/B were explained. Blood transfusion is to continue. The patient verbalized understanding and signed the consent form. Past History Past Medical History: hematologic disorders (Anemia) Past Surgical History: D&C Family/Genetic History: none Social history: no significant social history - Obstetrical History : 2 Para: 0 Spontaneous Abortions: 1 Medications and Allergies Allergies Allergy/AdvReac Type Severity Reaction Status Date / Time No Known Allergies Allergy Verified 10/06/21 16:20 Home Medications Medication Instructions Recorded Confirmed Last Taken Type Ondansetron [Zofran Odt] 4 mg PO Q8HR PRN #20 tab.rapdis 09/27/21 Unknown Rx oxyCODONE /ACETAMINOPHEN [Percocet 1 tab PO Q6HR PRN #12 tablet 09/27/21 Unknown Rx 5/325] Ferrous Sulfate [Iron 325 MG] 325 mg PO DAILY #20 tab 10/06/21 Unknown Rx Methylergonovine [Methergine] 0.2 mg PO Q8HR #9 tablet 10/06/21 Unknown Rx Active Meds: Active Medications Dextrose/Sodium Chloride (D5ns) 1,000 mls @ 125 mls/hr IV DIRECT ROMEL Methylergonovine Maleate (Methylergonovine 0.2 Mg Tablet) 0.2 mg PO Q8HR ROMEL Review of Systems All systems: negative Constitutional: fatigue, weakness, lethargy Genitourinary: vaginal bleeding - Vital Signs Vital signs: Vital Signs Temp Pulse Resp BP Pulse Ox 97.2 F L 130 H 18 157/85 100 10/15/21 14:54 10/15/21 14:54 10/15/21 14:54 10/15/21 14:54 10/15/21 14:54 Temp Pulse Resp BP Pulse Ox 99 F 107 H 16 128/64 100 10/15/21 21:00 10/15/21 21:00 10/15/21 21:00 10/15/21 21:00 10/15/21 21:00 - Physical Exam Breasts: Positive: normal Cardiovascular: Regular rate Lungs: Positive: Normal air movement Abdomen: Positive: normal appearance Genitourinary (Female): Positive: normal external genitalia, normal perenium Vulva: both: normal Vagina: Positive: other (bleeding, clots) Uterus: Positive: normal size Adnexa: both: normal Anus/Rectum: Positive: normal perianal skin Extremities: Positive: normal Deep Tendon Reflex Grade: Normal +2 Results Result Diagrams: 10/15/21 15:34 10/15/21 15:34 Abnormal lab results 10/15/21 10/15/21 10/15/21 Range/Units 15:34 15:34 15:34 RBC 3.19 L (3.65-5.03) M/mm3 Hgb 6.6 L (10.1-14.3) gm/dl Hct 22.2 L (30.3-42.9) % MCV 70 L (79-97) fl MCH 21 L (28-32) pg RDW 18.4 H (13.2-15.2) % Seg Neutrophils % 81.0 H (40.0-70.0) % Carbon Dioxide 21 L (22-30) mmol/L Glucose 106 H (65-100) mg/dL HCG, Quant 13.04 H (0-4) mIU/mL Crossmatch 10/15/21 Range/Units 17:06 RBC (3.65-5.03) M/mm3 Hgb (10.1-14.3) gm/dl Hct (30.3-42.9) % MCV (79-97) fl MCH (28-32) pg RDW (13.2-15.2) % Seg Neutrophils % (40.0-70.0) % Carbon Dioxide (22-30) mmol/L Glucose (65-100) mg/dL HCG, Quant (0-4) mIU/mL Crossmatch See Detail All other labs normal. Ultrasound: report reviewed Assessment and Plan - Patient Problems (1) Retained products of conception after miscarriage Current Visit: Yes Status: Acute Plan to address problem: B-hCG was 13, and pelvic ultrasound was limited, but not suspicious for retained products of conception. However, clinically (and after reviewing the pelvic ultrasound images myself), I have suspicion for something within the endometrial cavity (e.g. some degree of retained products of conception, endometrial polyp, or tumor) as the cause of this patient's heavy vaginal bleeding. I offered the patient suction dilation and curettage, possible hysteroscopy as treatment. In my opinion, without addressing the source of the vaginal bleeding, she will continue to exhibit symptoms and blood transfusion will be less effective. The R/A/B were explained. Blood transfusion is to continue. The patient verbalized understanding and signed the consent form. (2) Anemia due to acute blood loss Current Visit: Yes Status: Acute Plan to address problem: Hemoglobin in main E.D. was 6.6 g/dL, and blood transfusion was ordered. Blood transfusion is to continue. The patient verbalized understanding and signed the consent form.
[2021-10-15] MEDS ORDERED: LACTATED RINGERS 1,000 ML IV SCH (23:45)
[2021-10-16] MEDS ORDERED: SILVER NITRATE APPLICATOR 1 EA TP ONE ×2 (00:33→00:35)
[2021-10-16] MEDS ORDERED: SODIUM CHLORIDE 0.9% IRRIG SOLN 2000 ML IR ONE (00:35)
[2021-10-16] MEDS ORDERED: KETOROLAC 30 MG/1 ML INJ ONE (00:39)
[2021-10-16] MEDS ORDERED: HYDROmorphone 1 MG/1 ML INJ ONE (01:02)
--- NOTE | 2021-10-16 01:12 | Post Anesthesia Evaluation ---
- Post Anesthesia Evaluation Patient Participated: Yes Airway Patent: Yes Stable Respiratory Function: Yes Nausea/Vomiting: No Temp > 96.8F: Yes Pain Manageable: Yes Adequeate Hydration: Yes Anesthesia Complications: No Block Receding Appropriately: Not Applicable Patient on Ventilator: No
[2021-10-16] MEDS ORDERED: HYDROmorphone 1 MG/1 ML INJ IV PRN ×2 (01:19)
--- NOTE | 2021-10-16 01:19 | Operative Report ---
Operative Report Operative Report: PREOPERATIVE DIAGNOSES: 1. Retained products of conception. 2. Anemia secondary to acute blood loss. POSTOPERATIVE DIAGNOSES: 1. Retained products of conception. 2. Anemia secondary to acute blood loss. PROCEDURE PERFORMED: 1. Hysteroscopy. 2. Dilatation and curettage. SURGEON: Arian Larson M.D. ANESTHESIA: General. IV FLUIDS: 700 mL Lactated Ringers. ESTIMATED BLOOD LOSS: 20 mL URINE OUTPUT: 400 mL COMPLICATIONS: None. PATHOLOGY: Products of conception sent for pathologic examination. DISPOSITION: To PACU and then Mother Baby floor. FINDINGS: Upon placing a speculum into the vagina, there was a 6 cm x 2 cm x 2 cm mass protruding from the cervix that was firm and nodular that appeared to be consistent with retained products of conception in the process of being expelled. The cervix was already dilated and patulous. That tissue was grasped with 2 separate ring forceps and removed prior to being sent for pathologic examination. Hysteroscopy revealed a normal appearing endometrial cavity with fluffy appearing endometrium. Bilateral tubal ostia were not clearly visualized. PROCEDURE: The patient was taken to the operating room where she was properly prepped and draped in sterile manner under general anesthesia. A bivalve speculum was placed in the patient's vagina. The anterior lip of the cervix was grasped with a long Allis clamp. A 6 cm x 2 cm x 2 cm mass protruding from the cervix that was firm and nodular was noted to be in the process of being expelled. The cervix was already dilated and patulous. That tissue was grasped with 2 separate ring forceps and removed prior to that being sent for pathologic examination. The diagnostic hysteroscope was inserted via the endocervix into the endometrial cavity. Normal saline was used as a distending media. A survey of the endometrial cavity was performed. There was normal-appearing fluffy endometrium within the endometrial cavity bilateral tubal ostia were not clearly visualized. Hysteroscope was removed. A sharp curettage was performed very gently with the endometrial curette. Those curettings were sent for pathologic examination. The Allis clamp was removed. The endocervix was bleeding slightly. The area of bleeding was addressed with 2 sticks of silver nitrate. It was hemostatic thereafter. The patient tolerated the procedure well. Sponge, lap, and needle counts were correct x2. The patient was taken to the postanesthesia recovery care unit in stable condition. Blood transfusion of 3 units of packed red blood cells will continue on the mother-baby unit.
[2021-10-16] MEDS ORDERED: HYDROcodone/ACETAMINOPHEN 5-325 MG TAB PO PRN (01:21)
[2021-10-16] MEDS ORDERED: ACETAMINOPHEN 325 MG TAB PO PRN (01:21)
[2021-10-16] MEDS ORDERED: IBUPROFEN 800 MG TAB PO PRN (01:21)
[2021-10-16] MEDS ORDERED: SODIUM CHLORIDE 0.9% 1000 ML 1,000 ML ONE (01:25)
[2021-10-16] MEDS ORDERED: SODIUM CHLORIDE 0.9% 1000 ML 1,000 ML IV SCH (01:30)
--- NOTE | 2021-10-16 11:34 | Event Note ---
Date: 10/16/21 pt seen and evaluated post op and doing well. Pain controlled with meds and has voided without difficulty. Vag bleed seen on pad scant. Pt has received 3 of 4 units of PRBC and has repeat cbc scheduled for later today. Will allow pt to ambulate if without symptomatic anemia. Vitals wnl at this time. Await pathology next week when complete.
[2021-10-16 12:59] LABS: Basophils # (Auto) 0.1 K/mm3 (0.0-0.1); Basophils % (Auto) 0.6 % (0.0-1.8); Eosinophils # (Auto) 0.1 K/mm3 (0.0-0.4); Eosinophils % (Auto) 1.3 % (0.0-4.3); Hematocrit 25.4 % (30.3-42.9); Hemoglobin 8.1 gm/dl (10.1-14.3); Lymphocytes # (Auto) 2.3 K/mm3 (1.2-5.4); Mean Corpuscular HGB Conc 32 % (30-34); Mean Corpuscular Volume 76 fl (79-97); Monocytes # (Auto) 0.5 K/mm3 (0.0-0.8); Monocytes % (Auto) 4.6 % (0.0-7.3); Red Blood Count 3.34 M/mm3 (3.65-5.03)
[2021-10-16 13:22] LABS: Red Cell Distribution Width 21.1 % (13.2-15.2)
[2021-10-16 13:38] LABS: Platelet Count 248 K/mm3 (140-440)
[2021-10-16 16:31] VITALS: BP 121/66
--- NOTE | 2021-10-16 16:33 | Event Note ---
Date: 10/16/21 pt remains stable and has received 3 units of PRBC and pt desires to go home with normal vitals. PT to follow up in clinic in 1wk for hgb check. Symptoms of anemia explained and pt to return to ER of any of these symptoms present. Will give doxycycline med for 5days.
--- NOTE | 2021-10-16 16:39 | Discharge Summary ---
Providers - Providers Date of Admission: 10/15/21 23:34 Date of discharge: 10/16/21 Attending physician: MARIBEL LUNSFORD MD Primary care physician: JERED HERNÁNDEZ Hospitalization Reason for admission: other (Incomplete with abnormal ultrasound, active bleeding and severe anemia; possible polyp or tumor) Procedure: other (Hysteroscopy and Dilatation and Curettage) Episiotomy: none Laceration: none complications: transfusion ([id number] PRBC with hgb 6.6 preop) Discharge diagnosis: other (Retained products of conception in first trimester; Severe anemia) Hospital course: Pt admitted with active vag bleed, abnormal ultrasound, B-HCG 13 and high suspicion for retained products, possible polyp or tumor. Hysteroscopy and dilatation and curettage done by Dr. Larson and pt transfused 3units PRBC and now asymptomatic anemia. Discharge hgb 8.3; Pt also given doxycycline to complete 5day treatment. Condition at discharge: Good Disposition: 01 HOME / SELF CARE / HOMELESS Plan - Discharge Medications Prescriptions: Doxycycline Monohydrate 100 mg PO BID 5 Days #10 Ferrous Sulfate [Ferrous Sulfate 324 MG] 324 mg PO BID 30 Days #60 Ibuprofen [Motrin] 800 mg PO Q8HR PRN 21 Days #40 tablet PRN Reason: Pain, Moderate (4-6) oxyCODONE /ACETAMINOPHEN [Percocet 5/325] 1 tab PO Q6HR PRN 21 Days #30 tablet PRN Reason: Pain , Severe (7-10) - Provider Discharge Summary Activity: no sex for 6 weeks Diet: routine Additional instructions: [] Smoking cessation referral if applicable(refer to patient education folder for contact #) [] Refer to [facility] Booklet Call your doctor immediately for: * Fever > 100.5 * Heavy vaginal bleeding ( >1 pad per hour) * Severe persistent headache * Shortness of breath * Drainage or odor from your vagina NO SEX or tub baths. Please make appt with your clinic for follow up in 1wk for CBC check. - Follow up plan Follow up: JERED HERNÁNDEZ MD [Primary Care Provider] - 3-5 Days RUTH LASSITER MD [Staff Physician] - 7 Days Forms: [facility] Discharge Summary
== END 2021-10-16 17:10 | disposition home or self-care (01) ==
LOC: ED 14:04 → OB 23:34
PROVIDERS: ADMIT Obstetrics & Gynecology; ATTEND Obstetrics & Gynecology
DX: O03.4 Incomplete spontaneous abortion without complication (principal); Z20.822 Contact with and (suspected) exposure to COVID-19; D62 Acute posthemorrhagic anemia; O46.91 Antepartum hemorrhage, unspecified, first trimester; O02.89 Other abnormal products of conception; R42 Dizziness and giddiness; Z79.899 Other long term (current) drug therapy; Z98.890 Other specified postprocedural states; Z3A.12 12 weeks gestation of pregnancy
CPT/HCPCS: 36415; 36430; 59812; 76830; 80053; 84702; 85025; 86850; 86900; 86901; 86920; 88305; 96361; 96372; 96374; 96375; 99284; G0378; J1170; J1885; J2210; J2270; J2405; J2704; J3010; J3490; J7030; J7040; J7042; P9016; U0003; J7120; Q0162